=== PATIENT | female | born 1945 | race Caucasian/White ===

== ENCOUNTER 2021-08-06 14:48 | Inpatient (IN) | payer MEDICARE, BC ==
[2021-08-06] MEDS ORDERED: ONDANSETRON 4 MG/2 ML VIAL IVP STA (14:57)
--- NOTE | 2021-08-06 14:57 | ED Physician Documentation ---
History of Present Illness - Stated complaint Stated Complaint: CODE STROKE - Additonal information Additional information: 75-year-old female is brought to the emergency department by EMS under a code stroke evaluation. She was last known normal at 1350. She was walking into her dentist office to drop off [place] when she began to develop a sudden right- sided headache she felt off balance and became nauseated. Stated she simply felt "weird.". When EMS arrived she was on the ground. They noted her to be modestly hypertensive at 192/121. She does not have a history of hypertension. She is not on any blood sugar thinners. Her blood glucose was 144. EMS reports that she had some right-sided weakness. On presentation to the emergency department the patient is alert and oriented. She is vomiting into an emesis basin. However her NIHSS right now is 1 only for a mild aphasia and difficulty with word finding pmh: hypothyroid, htn meds: Atenolol, Synthroid, hydrochlorothiazide, K-dur Review of Systems Constitutional: denies: Fever, Chills Eyes: reports: Decreased vision Ears: reports: Reviewed and negative Nose: reports: Reviewed and negative Throat: reports: Reviewed and negative Cardiac: reports: Reviewed and negative Respiratory: reports: Reviewed and negative GI: reports: Reviewed and negative : reports: Reviewed and negative PD PAST MEDICAL HISTORY - Allergies Allergies/Adverse Reactions: Allergies Allergy/AdvReac Type Severity Reaction Status Date / Time Penicillins Allergy Hives Verified 08/06/21 14:54 PD ED PE EXPANDED - General General: Alert, In distress - HEENT HEENT: PERRL, Moist mucous membranes - Eyes Eyes: Visual acuity - see nn, PERRL, EOMI - Neck Neck: Supple w/out meningeal sx. No: Adenopathy - Cardiac Cardiac: Regular Rate, Radial strong equal, Pedal strong equal, Cap refill < 2 sec. No: Murmur Present - Respiratory Respiratory: Clear to ausultation madan. No: Distress, Labored - Abdomen Abdomen: Normal Bowel sounds. No: Tender to palpation - Neuro Neuro: Alert and Oriented X 3, CNII-XII intact, Normal finger nose, Normal speech - GCS Eye Opening: Spontaneous Motor: Obeys Commands Verbal: Oriented Total: 15 Results - Vitals Vitals: Vital Signs - 24 hr 08/06/21 08/06/21 08/06/21 14:54 14:58 15:34 Temperature 36.5 C 36.5 C Heart Rate 68 68 70 Respiratory 16 16 33 H Rate Blood Pressure 192/100 H 192/100 H 174/77 H O2 Saturation 96 96 96 Oxygen O2 Source Room air - EKG (time done) 1509 Rate: Rate (enter#) (68) Rhythm: NSR Arnegard: Normal Intervals: Normal MA, RBBB QRS: Normal Ischemia: Normal ST segments Compare to prior EKG: Old EKG unavailable Computer interpretation: Agree with computer - Labs Labs: Laboratory Tests 08/06/21 08/06/21 08/06/21 15:05 15:05 15:05 WBC 6.0 RBC 5.11 Hgb 15.3 Hct 45.8 MCV 89.6 MCH 29.9 MCHC 33.4 RDW 12.8 Plt Count 353 MPV 9.0 Neut # (Auto) 3.5 Lymph # (Auto) 1.7 [place] # (Auto) 0.5 Eos # (Auto) 0.3 Baso # (Auto) 0.1 Absolute Nucleated RBC 0.00 Nucleated RBC % 0.0 PT 11.1 INR 1.0 Sodium 137 Potassium 2.9 L Chloride 101 Carbon Dioxide 23 Anion Gap 13.0 BUN 16 Creatinine 0.7 Estimated GFR (MDRD) 81 L Glucose 138 H Calcium 9.9 Total Bilirubin 0.8 AST 23 ALT 22 Alkaline Phosphatase 51 Troponin I High Sens Total Protein 7.1 Albumin 4.2 Globulin 2.9 Albumin/Globulin Ratio 1.4 Lipase 31 08/06/21 15:05 WBC RBC Hgb Hct MCV MCH MCHC RDW Plt Count MPV Neut # (Auto) Lymph # (Auto) [place]ill # (Auto) Eos # (Auto) Baso # (Auto) Absolute Nucleated RBC Nucleated RBC % PT INR Sodium Potassium Chloride Carbon Dioxide Anion Gap BUN Creatinine Estimated GFR (MDRD) Glucose Calcium Total Bilirubin AST ALT Alkaline Phosphatase Troponin I High Sens 4.3 Total Protein Albumin Globulin Albumin/Globulin Ratio Lipase - Rads (name of study) CT head Radiology: Final report received (No CT evidence of acute intracranial abnormalities. Age-related atrophy and mild white matter chronic small vessel ischemic changes) cervical spine Radiology: Final report received (No acute cervical spine fracture or dislocation. Degenerative disc disease throughout the cervical spine most prominent at C5-C7) PD MEDICAL DECISION MAKING - ED course Complexity details: reviewed results, re-evaluated patient, considered differential, d/w patient, d/w family, d/w regional sales consultant (Maryjane Diaz tele- stroke neurologist) ED course: 75-year-old female presents to the emergency department for evaluation of sudden onset headache Right-sided weakness as she was walking into her dentist office to drop off flow at [place]. Symptoms began at 1350. She presents to the [facility] department now an NIHSS score of 1 for mild aphasia and word finding only. CT of the head did not show any acute findings. Given the mild aphasia it was not likely she would be a tPA candidate but we did do a telestroke consultation with Dr. Lawson. He did evaluate the patient and he does not make a recommendation for thrombolytics. He would recommend carotid ultrasound and subsequent MRI tomorrow to rule out CVA. Patient is hemodynamically stable Glascow of 15. She does persist with mild aphasia that is improving. The patient and her were aware of the plan to admit to observation status. I spoke with admitting hospitalist Dr. Gray who agrees to further facilitate her care likely will require MRI, echo and or carotid dopplers.. Patient and her are aware of the plan to admit to observation status Departure - Departure Disposition: 01 Home, Self Care Clinical Impression: Aphasia, Stroke-like symptoms Condition: Stable Record reviewed to determine appropriate education?: Yes NIHSS - Time Time: 14:55 - Level of Consciousness Level of consciousness: (1) Not alert, but arousable by minor stimulation to obey, or answer LOC Questions: (0) Answers both Q's correct LOC Commands: (0) Performs both correctly - Gaze Best Gaze: (0) Normal - Visual Visual: (0) No loss - Facial Palsy Facial Palsy: (0) Normal, symmetrical movement - Motor Arms (both separate) Motor Arm (right): (0) No drift Motor Arm (left): (0) No drift - Motor Legs (both separate) Motor Leg (right): (0) No drift Motor Leg (left): (0) No drift - Limb Ataxia Limb Ataxia: (0) Absent - Sensory Sensory: (0) Normal - Best Language Best Language: (1) [id number] - Dysarthria Dysarthria: (0) Normal - Extinction and Inattention (formally neg Extinction and inattention: (0) No abnormality - Total Score/Results Total Score/Result: 2
[2021-08-06 15:11] LABS: BASOPHILS # (AUTO) 0.1 10^3/uL (0.0-0.1); BASOPHILS % (AUTO) 1.2 %; EOSINOPHILS # (AUTO) 0.3 10^3/uL (0.0-0.7); EOSINOPHILS % (AUTO) 5.6 %; HCT - HEMATOCRIT 45.8 % (37.0-47.0); HGB - HEMOGLOBIN 15.3 g/dL (12.0-16.0); LYMPHOCYTES # (AUTO) 1.7 10^3/uL (1.5-3.5); LYMPHOCYTES % (AUTO) 28.2 %; MEAN CORPUSCULAR HEMOGLOBIN 29.9 pg (27.0-31.0); MEAN CORPUSCULAR HGB CONC 33.4 g/dL (32.0-36.0); MEAN CORPUSCULAR VOLUME 89.6 fL (81.0-99.0); MONOCYTES # (AUTO) 0.5 10^3/uL (0.0-1.0); MONOCYTES % (AUTO) 7.5 %; NEUTROPHILS # (AUTO) 3.5 10^3/uL (1.5-6.6); NEUTROPHILS % (AUTO) 57.2 %; PLT - PLATELET COUNT 353 10^3/uL (130-450); RED BLOOD COUNT 5.11 10^6/uL (4.20-5.40); RED CELL DISTRIBUTION WIDTH 12.8 % (12.0-15.0)
--- NOTE | 2021-08-06 15:12 | CT Report ---
PROCEDURE: HEAD WO INDICATIONS: right sided headache, n/v TECHNIQUE: Noncontrast 4.5 mm thick angled axial sections acquired from the foramen magnum to the vertex. For r adiation dose reduction, the following was used: automated exposure control, adjustment of mA and/or kV according to patient size. COMPARISON: None. FINDINGS: Image quality: Excellent. CSF spaces: Basal cisterns are patent. No extra-axial fluid collections. The ventricles are symmet yvrose in size and shape. Brain: No intracranial bleeds or masses. There is cerebral volume loss for age, with resultant vent ricular and sulcal prominence. There are periventricular and deep white matter chronic small vessel ischemic changes. There is intracranial internal carotid artery atherosclerosis. Skull and face: Calvarium and visualized facial bones appear intact, without suspicious lesions. Sinuses: Visualized sinuses and mastoids are clear. IMPRESSION: 1. No CT evidence of acute intracranial abnormalities. 2. Age-related atrophy and mild white matter chronic small vessel ischemic changes. Reviewed by: Carlos Layton MD on 08/06/2021 3:11 PM PDT Approved by: Carlos Layton MD on 08/06/2021 3:11 PM PDT Station ID: [id number]
--- NOTE | 2021-08-06 15:17 | CT Report ---
PROCEDURE: CERVICAL SPINE WO INDICATIONS: RIGHT SIDED NECK PAIN TECHNIQUE: Noncontrast 3 mm thick sections acquired from the skull base to the T4 level. Sagittal and coronal r eformats were then constructed. For radiation dose reduction, the following was used: automated exp osure control, adjustment of mA and/or kV according to patient size. COMPARISON: None. FINDINGS: Image quality: Excellent. Bones: No fractures or dislocations. Mild degenerative endplate changes and bilateral facet hypertro phic changes are noted throughout cervical spine more prominent at C5-6 level. No significant central canal stenosis. Right-sided neural foraminal narrowing at C5-6 and C6-7 levels are seen. Visualized superior ribs are intact. Soft tissues: Prevertebral soft tissues are normal in thickness. No paravertebral hematomas. No ap ical pneumothoraces. IMPRESSION: 1. No acute cervical spine fracture or dislocation. 2. Degenerative disc disease throughout cervical spine more prominent at C5-6 and C6-7 levels as abov e. Reviewed by: Carlos Layton MD on 08/06/2021 3:16 PM PDT Approved by: Carlos Layton MD on 08/06/2021 3:16 PM PDT Station ID: [id number]
[2021-08-06 15:22] LABS: PT - PROTHROMBIN TIME 11.1 secs (9.9-12.6)
[2021-08-06 15:25] LABS: ALBUMIN 4.2 g/dL (3.2-5.5); ALBUMIN/GLOBULIN RATIO 1.4 (1.0-2.2); BILIRUBIN,TOTAL 0.8 mg/dL (0.2-1.0); CALCIUM 9.9 mg/dL (8.5-10.3); CREATININE 0.7 mg/dL (0.4-1.0); POTASSIUM 2.9 mmol/L (3.5-5.0); TOTAL PROTEIN 7.1 g/dL (6.7-8.2)
--- NOTE | 2021-08-06 15:51 | XRAY Report ---
PROCEDURE: Chest 1 View X-Ray INDICATIONS: chest pain TECHNIQUE: One view of the chest was acquired. COMPARISON: None FINDINGS: Surgical changes and devices: None. Lungs and pleura: No pleural effusions or pneumothorax. Mild pulmonary vascular congestion is seen. No definite focal infiltrate. Mediastinum: Mildly tortuous thoracic aorta is seen. Heart size is normal. Bones and chest wall: No suspicious bony lesions. Overlying soft tissues appear unremarkable. IMPRESSION: Mild congestion. No definite focal infiltrate. No pleural effusion or pneumothorax. Reviewed by: Carlos Layton MD on 08/06/2021 3:50 PM PDT Approved by: Carlos Layton MD on 08/06/2021 3:50 PM PDT Station ID: [id number]
[2021-08-06] MEDS ORDERED: ASPIRIN CHEW 81 MG TABLET PO STA (16:45)
[2021-08-06] MEDS ORDERED: POTASSIUM CHLORIDE 20 MEQ TABLET PO STA (17:09)
[2021-08-06] MEDS ORDERED: POTASSIUM CHLOR 10 MEQ/100 ML 10 MEQ/100 ML BAG IV STA (17:09)
[2021-08-06] MEDS ORDERED: SODIUM CHLORIDE FLUSH 0.9% 10 ML SYRINGE IVP PRN (17:10)
[2021-08-06] MEDS ORDERED: PROCHLORPERAZINE 10 MG/2 ML VIAL IVP PRN (17:21)
[2021-08-06] MEDS ORDERED: ACETAMINOPHEN 325 MG TABLET PO PRN (17:21)
[2021-08-06] MEDS ORDERED: HYDROcod/ACETAM 5/325 MG TABLET PO PRN (17:21)
[2021-08-06] MEDS ORDERED: ONDANSETRON 4 MG/2 ML VIAL IVP PRN (17:21)
[2021-08-06] MEDS ORDERED: LABETALOL 20 MG/4 ML SYRINGE IVP PRN (17:24)
--- NOTE | 2021-08-06 17:48 | HISTORY & PHYSICAL EXAMINATION ---
Chief Complaint - Chief Complaint Chief Complaint: Acute vertigo with associated nausea and emesis with right- sided headache a Stroke/TIA/Neuro Template - History Obtained From Records Reviewed: RN notes reviewed, Other (Per ROPE TOW OPERATOR initial assessment) History obtained from: Patient, Other () Exam limitations: No limitations - History of Present Illness Symptom Quality: reports: Expressive aphasia Context- Symptoms started w/: reports: Awake, Walking Timing: reports: Abrupt onset Date of onset: 08/06/21 Duration: reports: Unknown Improved with: reports: Rest Worsened by: reports: Movement Associated symptoms: reports: Nausea, Vomiting, Feeling faint / dizzy PMH/PSH - Past Medical History Cardiovascular: positive: Hypertension Endocrine/Autoimmune: positive: HyPOthyroidism Other Past Medical History: unable to obtain - Past Surgical History Other past surgical history: Patient denies surgical history Social & Family Hx - Living Situation Living Arrangement: At home Living Situation: With spouse/s.o. - Social History Does the pt smoke?: No Smoking Status: Never smoker Does the pt drink ETOH?: Yes ETOH Use: Wine Does the pt have substance abuse?: No - POLST Patient has POLST: No POLST Status: Has a living well which s - Family History Family History: Mother: Alive and Well, (History of CAD with CABG and in 2019), CAD, Hyperlipidemia, Hypertension, HI, Father: Alive and Well, Other family: Alive and Well Meds/Allgy - Allergies Allergies/Adverse Reactions: Allergies Allergy/AdvReac Type Severity Reaction Status Date / Time Penicillins Allergy Hives Verified 08/06/21 14:54 Review of Systems - Constitutional Constitutional: denies: Fatigue, Fever, Poor appetite, Weight gain - Eyes Eyes: denies: Blurred vision, Field loss, Vision loss, Dipolpia - Ears, Nose & Throat Ears, Nose & Throat: reports: Vertigo. denies: Ear pain, Nasal congestion, Sore throat - Cardiovascular Cariovascular: denies: Palpitations, Chest pain, Edema, Lightheadedness, Syncope, Orthopnea - Respiratory Respiratory: denies: Cough, Sputum production, Wheezing, Snoring, Hemoptysis - Gastrointestinal Gastrointestinal: reports: Nausea, Vomiting. denies: Abdominal pain, Abdominal distention, Diarrhea - Genitourinary Genitourinary: denies: Dysuria, Frequency, Flank pain, Nocturia - Musculoskeletal Musculoskeletal: denies: Muscle pain, Back pain, Limited range of motion, Muscle weakness, Joint pain - Integumentary Integumentary: denies: Rash, Pruritis, Lesions - Neurological Neurological: reports: Headache, Dizziness, Slurred speech. denies: General weakness, Memory problems, Abnormal gait, Seizures - Psychiatric Psychiatric: denies: Depression, Anxiety, Hallucinations - Endocrine Endocrine: denies: Polyuria, Polydypsia, Polyphagia - Hematologic/Lymphatic Hematologic/Lymphatic: denies: Anemia, Petechiae, Blood clots - All Other Systems All Other Systems: reports: Reviewed and negative Prior Level of Functionality: Patient has good functional capacity at baseline Exam - Vital Signs Vital Signs: Vital Signs x48h Temp Pulse Resp BP Pulse Ox 08/06/21 15:34 70 33 H 174/77 H 96 08/06/21 14:58 36.5 C 68 16 192/100 H 96 08/06/21 14:54 36.5 C 68 16 192/100 H 96 - Physical Exam General Appearance: positive: No acute distress, Alert Eyes Bilateral: positive: Normal inspection, PERRL, EOMI, Conjunctivae nml. n egative: No scleral icterus ENT: positive: ENT inspection nml, Pharynx nml, No signs of dehydration Neck: positive: Nml inspection, Thyroid nml, No JVD, Trachea midline. negative: Thyromegaly, Carotid bruit Respiratory: positive: Chest non-tender, No respiratory distress, Breath sounds nml. negative: Wheezes, Rales Cardiovascular: positive: Regular rate & rhythm, No murmur, No gallop. negative: Irregularly irregular, Bradycardia, Gallop/S4, Friction rub Peripheral Pulses: positive: 2+ Abdomen: positive: Non-tender, No organomegaly, Nml bowel sounds, No distention. negative: Tenderness, Hepatomegaly, Splenomegaly Back: positive: Nml inspection, CVA tenderness (R) Skin: positive: Color nml, No rash, Warm. negative: Cyanosis, Pallor, Skin rash Extremities: positive: Non-tender, Full ROM, Nml appearance. negative: No pedal edema Neurologic/Psychiatric: positive: Oriented x3, CN's nml (2-12), Slurred/abnml speech (Mild aphasia) Reflexes: Knee (R): 2+, Knee (L): 2+, Ankle (R): 2+, Ankle (L): 2+ Babinski Reflex: Right: Absent, Left: Absent Results - Lab Results Fish Bones: 08/06/21 15:05 08/06/21 15:05 Other Lab Results: Lab Results x24hrs 08/06/21 08/06/21 08/06/21 Range/Units 16:45 15:05 15:05 WBC (4.8-10.8) x10^3/uL RBC (4.20-5.40) 10^6/uL Hgb (12.0-16.0) g/dL Hct (37.0-47.0) % MCV (81.0-99.0) fL MCH (27.0-31.0) pg MCHC (32.0-36.0) g/dL RDW (12.0-15.0) % Plt Count (130-450) 10^3/uL MPV (7.9-10.8) fL Neut # (Auto) (1.5-6.6) 10^3/uL Lymph # (Auto) (1.5-3.5) 10^3/uL Eagle # (Auto) (0.0-1.0) 10^3/uL Eos # (Auto) (0.0-0.7) 10^3/uL Baso # (Auto) (0.0-0.1) 10^3/uL Absolute Nucleated RBC x10^3/uL Nucleated RBC % /100WBC PT (9.9-12.6) secs INR (0.8-1.2) Sodium 137 (135-145) mmol/L Potassium 2.9 L (3.5-5.0) mmol/L Chloride 101 (101-111) mmol/L Carbon Dioxide 23 (21-32) mmol/L Anion Gap 13.0 (6-13) BUN 16 (6-20) mg/dL Creatinine 0.7 (0.4-1.0) mg/dL Estimated GFR (MDRD) 81 L (>89) Glucose 138 H (70-100) mg/dL Calcium 9.9 (8.5-10.3) mg/dL Total Bilirubin 0.8 (0.2-1.0) mg/dL AST 23 (10-42) IU/L ALT 22 (10-60) IU/L Alkaline Phosphatase 51 (42-121) IU/L Troponin I High Sens 4.3 (2.3-14.8) ng/L Total Protein 7.1 (6.7-8.2) g/dL Albumin 4.2 (3.2-5.5) g/dL Globulin 2.9 (2.1-4.2) g/dL Albumin/Globulin Ratio 1.4 (1.0-2.2) Lipase 31 (22-51) U/L SARS-CoV-2 (PCR) NOT DETECTED 08/06/21 08/06/21 Range/Units 15:05 15:05 WBC 6.0 (4.8-10.8) x10^3/uL RBC 5.11 (4.20-5.40) 10^6/uL Hgb 15.3 (12.0-16.0) g/dL Hct 45.8 (37.0-47.0) % MCV 89.6 (81.0-99.0) fL MCH 29.9 (27.0-31.0) pg MCHC 33.4 (32.0-36.0) g/dL RDW 12.8 (12.0-15.0) % Plt Count 353 (130-450) 10^3/uL MPV 9.0 (7.9-10.8) fL Neut # (Auto) 3.5 (1.5-6.6) 10^3/uL Lymph # (Auto) 1.7 (1.5-3.5) 10^3/uL Eagle # (Auto) 0.5 (0.0-1.0) 10^3/uL Eos # (Auto) 0.3 (0.0-0.7) 10^3/uL Baso # (Auto) 0.1 (0.0-0.1) 10^3/uL Absolute Nucleated RBC 0.00 x10^3/uL Nucleated RBC % 0.0 /100WBC PT 11.1 (9.9-12.6) secs INR 1.0 (0.8-1.2) Sodium (135-145) mmol/L Potassium (3.5-5.0) mmol/L Chloride (101-111) mmol/L Carbon Dioxide (21-32) mmol/L Anion Gap (6-13) BUN (6-20) mg/dL Creatinine (0.4-1.0) mg/dL Estimated GFR (MDRD) (>89) Glucose (70-100) mg/dL Calcium (8.5-10.3) mg/dL Total Bilirubin (0.2-1.0) mg/dL AST (10-42) IU/L ALT (10-60) IU/L Alkaline Phosphatase (42-121) IU/L Troponin I High Sens (2.3-14.8) ng/L Total Protein (6.7-8.2) g/dL Albumin (3.2-5.5) g/dL Globulin (2.1-4.2) g/dL Albumin/Globulin Ratio (1.0-2.2) Lipase (22-51) U/L SARS-CoV-2 (PCR) - Diagnostic Imaging Results Diagnostic Imaging Results: positive: Final report reviewed - EKG Results EKG Interpreted Independently: Yes EKG Comparison: positive: Old EKG unavailable Impression/Plan - Problem List Problem List: Assessment/plan: 1. Acute suspected CVA -Patient presenting with acute onset of a right-sided headache with associated vertigo, nausea with emesis and right-sided weakness triggered by a sudden turning of her head to the right and subsequently patient had fallen to the floor without loss of consciousness or syncope. She was given aspirin in the ED and CTh showed no acute intracranial process, EKG showed no arrhythmias, and she has associated mild aphasia with a NIH score of 1. Patient currently lacks other nonfocal neurological deficits. Stroke protocol order set with continued monitoring NIH scoring and of her blood pressure with liberal blood pressure excursions to be corrected with IV labetalol for SBP above 220 and DBP above 120 and will restart patient's atenolol and hydrochlorothiazide after 24 hours. In addition would continue aspirin, obtain fasted lipid panel and start Lipitor moderate intensity, A1c level, MRI of the brain, ultrasound carotids, echocardiogram, TSH with reflex to follow. Patient to have PT/OT to assess for rehab potential. Patient will have a bedside swallow eval and advance to a 3-4 g Na soft mech diet. Neurochecks every shift, medical management. 2. Vertigo -Likely precipitated by patient's acute turning of her head with sensation of "spinning" but denies LOC or syncopal events. MRI of the brain to evaluate for posterior distribution CVA and treat supportively with meclizine 25 mg p.o. 3 times daily. PT/OT to evaluate. 3. Hypokalemia -Patient presented with a potassium of 2.9 on admission and likely related to patient's taking hydrochlorothiazide but did have 2 bouts of nausea with emesis and GI losses may be contributing. IV KCl 10 mEq p.o. 40 mEq p.o. of KCl to be given with a repeat potassium at 2100 and potassium repletion protocol to be instituted. We will please placed on IV fluids with NS +20 M EQ. 4. Nausea with emesis -Provide supportive care with antiemetics, IV fluids, medical management as per above. 5. Cervical degenerative disc disease -Patient was noted to have degenerative disc disease most notably at the level C5-C7 with no canal stenosis and unclear if this was the precipitant cause of patient's acute pain with hypertensive crisis and subsequent symptoms that ensued. If patient develops pain would assess for muscle relaxants plus or minus narcotics or Lyrica if patient develops radiculopathy type symptoms. 6. Malignant hypertension -SBP's 190's and DBP in 100's and have now improved to 170's and 70's, respectively. Patient typically takes atenolol and hydrochlorothiazide as outpatient and will be holding these for now in the setting of acute suspected CVA with restarting after 24 hours to avoid precipitous drop as an patient's blood pressure due to "autoregulation". Of patient's CVA. 7. History of hypothyroidism -TSH with reflex although she does not take Synthroid or any other supplementation was diagnosed with hypothyroidism in the 1960s-70s DVT prophylaxis: Lovenox 40 mg subcu daily CODE STATUS: Full code, confirmed at bedside.
[2021-08-06 18:23] LABS: THYROID STIMULATING HORMONE 3.4 uIU/mL (0.34-5.60)
[2021-08-06 18:25] LABS: FREE T4 (FREE THYROXINE) 1.04 ng/dL (0.58-1.64)
[2021-08-06] MEDS: MECLIZINE 12.5 MG TABLET PO SCH ×2 (19:04→21:00)
[2021-08-06] MEDS: PANTOPRAZOLE 40 MG TABLET PO SCH (19:04)
[2021-08-06] MEDS: NS W/20 MEQ KCL 1,000 ML IV SCH (19:04)
[2021-08-06 20:14] LABS: ESTIMATED AVERAGE GLUCOSE 117 mg/dL (70-100); HEMOGLOBIN A1c% 5.7 % (4.27-6.07)
[2021-08-06] MEDS ORDERED: ATORVASTATIN 40 MG TABLET PO SCH (21:00)
[2021-08-06] MEDS: SODIUM CHLORIDE FLUSH 0.9% 10 ML SYRINGE IVP SCH (23:44)
--- NOTE | 2021-08-07 00:44 | Ultrasound Report ---
PROCEDURE: Carotid Doppler Limited INDICATIONS: Acute CVA eval for carotid artery stenosis TECHNIQUE: Color and pulse Doppler interrogation was performed of both carotid systems, with image documentation and velocity measurements. COMPARISON: None. FINDINGS: Right side: Brachial blood pressure: 153/68 mm Hg. Common carotid artery peak systolic velocity: 69 cm/sec. Internal carotid artery peak systolic velocity: 95 cm/sec. Internal carotid artery end diastolic velocity: 24 cm/sec. External carotid artery peak systolic velocity: 87 cm/sec. ICA/CCA peak systolic ratio: 1.4 . Rios scale imaging description: There is partially calcified plaque at the carotid bifurcation and i n the right carotid bulb. Percent internal carotid artery stenosis: Less than 50%. . Vertebral artery: Flow direction is antegrade. Left side: Brachial blood pressure: 162/75 mm Hg. Common carotid artery peak systolic velocity: 73 cm/sec. Internal carotid artery peak systolic velocity: 85 cm/sec. Internal carotid artery end diastolic velocity: 24 cm/sec. External carotid artery peak systolic velocity: 95 cm/sec. ICA/CCA peak systolic ratio: 1.2 . Rios scale imaging description: There is echogenic and Percent internal carotid artery stenosis: Less than 50% . Vertebral artery: Flow direction is antegrade. IMPRESSION: 1. Bilateral narrowing of less than 50% in the carotid bulbs. The estimate of stenosis included in the report of the imaging study was calculated using the NASCET method Reviewed by: Jas Dale MD on 08/07/2021 12:43 AM PDT Approved by: Jas Dale MD on 08/07/2021 12:43 AM PDT Station ID: [id number]
[2021-08-07] MEDS: NS W/20 MEQ KCL 1,000 ML IV SCH (05:02)
[2021-08-07] MEDS: MECLIZINE 12.5 MG TABLET PO SCH ×2 (05:02→14:25)
[2021-08-07 05:56] LABS: ALBUMIN 4.1 g/dL (3.2-5.5); CREATININE 0.7 mg/dL (0.4-1.0); POTASSIUM 3.8 mmol/L (3.5-5.0)
[2021-08-07 06:01] LABS: CHOL/HDL RATIO 3.1 (<4.4); CHOLESTEROL 171 mg/dL; HDL CHOLESTEROL 55 mg/dL; LDL CHOLESTEROL,CALCULATED 83 mg/dL; LDL/HDL RATIO 1.5 (<4.4); TRIGLYCERIDES 167 mg/dL; VLDL CHOLESTEROL 33 mg/dL
[2021-08-07] MEDS: PANTOPRAZOLE 40 MG TABLET PO SCH (08:32)
[2021-08-07] MEDS: SODIUM CHLORIDE FLUSH 0.9% 10 ML SYRINGE IVP SCH (08:33)
[2021-08-07] MEDS ORDERED: ASPIRIN CHEW 81 MG TABLET PO SCH (09:00)
[2021-08-07] MEDS ORDERED: ENOXAPARIN 40 MG/0.4 ML SYRINGE SUBQ SCH (09:00)
--- NOTE | 2021-08-07 10:28 | MRI Report ---
PROCEDURE: Brain W/O INDICATIONS: Acute CVA, dizziness TECHNIQUE: Noncontrast axial T1 spin echo, axial T2 fast spin echo, sagittal and axial FLAIR, coronal T2 fast sp in echo, axial gradient echo, axial diffusion and ADC through the brain. COMPARISON: CT head 08/06/2021. FINDINGS: Image quality: Excellent. CSF Spaces: Basal cisterns are patent. No extra-axial fluid collections. Ventricles are normal in size and shape. Brain: No intracranial masses or hemorrhage. Rios/white matter interface is normal. There is mild, diffuse cerebral volume loss. There are mild periventricular and subcortical white matter chronic mi crovascular ischemic changes. Brainstem appears normal. Diffusion-weighted images demonstrate no acu te ischemic insult. No chronic ischemic insults. Normal intravascular flow voids are present. Skull and face: Calvarium has normal marrow signal. Orbits appear normal. Sinuses: Sinuses are clear. Small fluid noted in the dependent portions of the right mastoid air ce lls. Left mastoid air cells are clear. IMPRESSION: 1. No acute intracranial disease process. 2. No areas of acute or chronic infarction. 3. No abnormal intracranial mass or mass effect. 4. Mild, diffuse cerebral volume loss. 5. Mild periventricular and subcortical white matter chronic microvascular ischemic change. 6. Fluid in the right mastoid air cells. Recommend correlation with physical findings to differentiat e serous fluid from inflammatory process. Reviewed by: Loly Ely MD, PhD on 08/07/2021 10:27 AM PDT Approved by: Loly Ely MD, PhD on 08/07/2021 10:27 AM PDT Station ID: [id number]
--- NOTE | 2021-08-07 11:37 | PHARMACY PROGRESS NOTE ---
- Best Possible Medication History Admit Date and Time: 08/06/21 1711 Processed by: Pharmacy Medication History completed: Yes Patient Interview: Completed Secondary Source(s): Pharmacy records, Insurance records As the person ultimately responsible for medication therapy, providers are able to order a medication from an existing home medication list in [facility] via the "Reconcile Routine" prior to Confirmation of that medication by other sales support worker. Such practice is discouraged except when the physician, in their clinical judgment, deems that a medical need exists for a medication without regard to previous use.
[2021-08-07 12:12] VITALS: BP 174/75
--- NOTE | 2021-08-07 14:12 | Discharge Plan ---
Discharge Plan Problem Reviewed?: Yes Disposition: Home, Self Care Condition: Good Prescriptions: Meclizine [Antivert] 25 mg PO TID PRN #90 tablet PRN Reason: Dizziness Aspirin Chewable [St Vinh Aspirin] 81 mg PO DAILY #30 tablet Simvastatin [Zocor] 40 mg PO QPM #90 tab Diet: Low Sodium Activity Restrictions: No Restrictions Shower Restrictions: No Driving Restrictions: No Weight Bearing: Full Weight Plan of Treatment: You will resume your home medications and your BP medications of atenolol and hydrochlorothiazide along with potassium supplementation. You will continue with aspirin as a new medication and will increase Zocor to 40 mg to be taken at nighttime. Meclizine has been also added to your regimen for dizzy spells as needed. Please continue to take all medications as prescribed and keep all appointments. Care Goals: Your goals of care will be to avoid being dehydrated and to drink plenty of fluids to avoid diuresing while on the hydrochlorothiazide and having low potassium levels which you may experience with muscle cramping. Would advised to double up on your potassium chloride supplementation if the symptoms occur. Please take atenolol as well as HCTZ at home. In addition would continue with monitoring for recurrence of dizzy spells and vertigo as well as slurred speech and weakness as these symptoms are likely related to a transient ischemic attack for which your MRI was essentially normal. No Smoking: If you smoke, Please STOP! Call for help. Follow-up with: Temo Reyna MD [Primary Care Provider] - 2 Weeks
[2021-08-07] MEDS ORDERED: hydroCHLOROthiazide 25 MG TABLET PO SCH (14:17)
[2021-08-07] MEDS ORDERED: atenoloL 25 MG TABLET PO SCH ×2 (14:17→21:00)
--- NOTE | 2021-08-07 14:25 | DISCHARGE SUMMARY ---
"Discharge Summary Admit Date: 08/06/21 Discharge Date: 08/07/21 Discharging Provider: Dr. Gray Primary Care Provider: Temo Reyna Code Status: Attempt Resuscitation Condition at Discharge: Good Discharge Disposition: 01 Home, Self Care - DIAGNOSES Admission Diagnoses: 1. Acute suspected CVA 2. Vertigo 3. Hypokalemia 4. Nausea with emesis 5. Cervical degenerative disc disease 6. Malignant hypertension 7. History of hypothyroidism Discharge Diagnoses with Status of Each Condition: 1. Transient ischemic attack---resolved 2. Vertigo---resolved 3. Hypokalemia---resolved 4. Nausea with emesis---resolved 5. Cervical degenerative disc disease---stable 6. HTN---controlled 7. History of hypothyroidism---Stable - HPI History of Present Illness: Pleasant 75-year-old with a history of hypertension, hyperlipidemia, hypothyroidism who presents to the emergency department with an acute bout of vertigo with associated nausea and emesis and right-sided weakness with difficulty speaking after she turned her neck abruptly as she was walking towards her dentist office to drop off de la garza. He was not a candidate for thrombolytics and initial CTh was unremarkable. NIH scoring was only 1 and her aphasia had quickly resolved. Labs were remarkable for hypokalemia which was corrected with aggressive KCl repletion.Patient was monitored closely and EKG showed no arrhythmias. Systolic blood pressures were in the 190s with diastolics in the 100s on admission. Hospital service was requested for further evaluation management treatment. Patient had a tele-neurology consult in ED with no indication for thrombolytics and to initiate a stroke protocol orders. NIH scoring at the time was only 1. And on my assessment was essentially 0. - CONSULTS | PROCEDURES Consultations: Teleneurology in ED Procedures: none - HOSPITAL COURSE Hospital Course: Patient was admitted for suspected acute posterior circulation CVA given her vertigo with associated nausea and emesis and right-sided weakness however her MRI study showed chronic microvascular ischemic disease/changes with no acute CVA. In addition ultrasound the carotids were unremarkable and unlikely that echocardiogram would show cardioembolic source. She was started on moderate intensity atorvastatin however she takes Crestor at home and LDL appear to be at goal levels however hypertriglyceridemia was noted. Patient had liberal BP excursions and was on IV labetalol as needed but did not require aggressive blood pressure control. Her A1c was essentially normal and patient was found to have no oral pharyngeal deficits with her aphasia essentially resolved and in keeping with transient ischemic attack with right-sided weakness essentially resolved as well. Her hypokalemia was aggressively treated with KCl repletion and with repeat being normal. Patient had a CT spine which showed cervical degenerative disc disease at C5-C7 with no central canal stenosis. Provocative testing did elicit some pain to the right posterior aspect of neck at the level of the C5-C6 level with no lateralization. Patient's nausea and emesis essentially resolved and her systolic blood pressures had improved to the 160s to 170s for which she will be receiving her atenolol and hydrochlorothiazide dose prior to discharge. Her hypothyroidism was managed with home Synthroid. Her physical therapy and OT were unremarkable for ongoing outpatient needs. Patient was hemodynamically stable upon discharge and will follow up with her PCP in 1 to 2 weeks. - ALLERGIES Allergies/Adverse Reactions: Allergies Allergy/AdvReac Type Severity Reaction Status Date / Time Penicillins Allergy Hives Verified 08/06/21 14:54 - MEDICATIONS Home Medications: Ambulatory Orders Medication Instructions Recorded Confirmed Aspirin Chewable [St Vinh 81 mg PO DAILY #30 tablet 08/07/21 Aspirin] Levothyroxine Sodium [Synthroid] 112 mcg PO QDAC 08/07/21 08/07/21 Meclizine [Antivert] 25 mg PO TID PRN #90 tablet 08/07/21 Potassium Chloride [Klor-Con 10] 10 meq PO DAILY 08/07/21 08/07/21 Simvastatin [Zocor] 40 mg PO QPM #90 tab 08/07/21 atenoloL [Tenormin] 25 mg PO QPM 08/07/21 08/07/21 atenoloL [Tenormin] 50 mg PO DAILY 08/07/21 08/07/21 hydroCHLOROthiazide [Hydrodiuril] 25 mg PO DAILY 08/07/21 08/07/21 - PHYSICAL EXAM AT DISCHARGE General Appearance: positive: No acute distress, Alert Eyes Bilateral: positive: Normal inspection, PERRL, EOMI ENT: positive: ENT inspection nml, Pharynx nml, No signs of dehydration Neck: positive: Nml inspection, Thyroid nml, No JVD, Trachea midline Respiratory: positive: Chest non-tender, No respiratory distress, Breath sounds nml Cardiovascular: positive: Regular rate & rhythm, No murmur, No gallop Peripheral Pulses: positive: 2+ Abdomen: positive: Non-tender, No organomegaly, Nml bowel sounds Back: positive: Nml inspection Skin: positive: Color nml, No rash, Warm Extremities: positive: Non-tender, Full ROM, Nml appearance Neurologic/Psychiatric: positive: Oriented x3, CN's nml (2-12) - LABS Result Diagrams: 08/06/21 15:05 08/07/21 05:03 - DIAGNOSTIC IMAGING Diagnostic Imaging Results: Final report reviewed - QUALITY (Female Hip Fx Only) Was patient sent home on osteoporosis medication?: No - FOLLOW UP Follow Up: Repeat in 1 to 2 weeks. Take all p.o. medications as prescribed. Avoid dehydration. - TIME SPENT Time Spent in Discharge (Minutes): 40"
[2021-08-08] MEDS ORDERED: LEVOTHYROXINE 112 MCG TABLET PO SCH (07:00)
[2021-08-08] MEDS ORDERED: POTASSIUM CHLORIDE 10 MEQ CAPSULE PO SCH (08:00)
== END 2021-08-07 15:09 | disposition home or self-care (01) | DRG 69 ==
LOC: ED 14:48 → MS2 17:11
PROVIDERS: ADMIT Family Medicine; ATTEND Family Medicine
DX: G45.9 Transient cerebral ischemic attack, unspecified (principal); R47.01 Aphasia; I10 Essential (primary) hypertension; E03.9 Hypothyroidism, unspecified; I45.10 Unspecified right bundle-branch block; E78.5 Hyperlipidemia, unspecified; E87.6 Hypokalemia; R07.9 Chest pain, unspecified; R11.2 Nausea with vomiting, unspecified; R42 Dizziness and giddiness; Z20.822 Contact with and (suspected) exposure to COVID-19; R53.1 Weakness; M50.322 Other cervical disc degeneration at C5-C6 level; M50.323 Other cervical disc degeneration at C6-C7 level; Z79.82 Long term (current) use of aspirin; Z79.890 Hormone replacement therapy; Z79.899 Other long term (current) drug therapy; Z82.49 Family history of ischemic heart disease and other diseases of the circulatory system; Z83.49 Family history of other endocrine, nutritional and metabolic diseases; Z88.0 Allergy status to penicillin
CPT/HCPCS: 36415; 70450; 70551; 71045; 72125; 80053; 80061; 80069; 83036; 83690; 83735; 84132; 84439; 84443; 84484; 85025; 85610; 87635; 93005; 93306; 93882; 96374; 97161; 97165; 99284; 99285; A9270; J1650; 83721